=== PATIENT | female | born 1960 | race Caucasian/White ===

== ENCOUNTER 2018-12-06 04:29 | Emergency (ER) | payer OTHER ==
[~2018-12-06] VITALS: Ht 167.6 cm; Wt 90.7 kg
[2018-12-06] MEDS ORDERED: IBUPROFEN800 MG PO (06:18)
[2018-12-06] MEDS ORDERED: PERCOCET 5-3251 EACH PO (06:24)
== END 2018-12-06 06:40 | disposition home or self-care (01) ==
LOC: ER 04:29
DX: S42.292A Other displaced fracture of upper end of left humerus, initial encounter for closed fracture (principal); W18.39XA Other fall on same level, initial encounter; Y93.89 Activity, other specified; Y92.89 Other specified places as the place of occurrence of the external cause; Y99.8 Other external cause status